=== PATIENT | female | born 1965 | race Caucasian/White ===

== ENCOUNTER 2018-10-23 06:56 | Emergency (ER) | payer OTHER ==
[2018-10-23] MEDS: DEXAMETHASONE 10 MG/ML 1 ML INJ IM (07:18)
[2018-10-23] MEDS: ACETAMINOPHEN 500 MG TAB PO (07:18)
[2018-10-23] MEDS: IPRATROPIUM (NEB) 0.5 MG/2.5 ML AMP NEB (07:35)
[2018-10-23] MEDS: ALBUTEROL 0.083% (NEB) 2.5 MG/3 ML AMP NEB (07:35)
== END 2018-10-23 08:53 | disposition home or self-care (01) ==
LOC: FTE 06:56
DX: J18.9 Pneumonia, unspecified organism (principal); J45.909 Unspecified asthma, uncomplicated
CPT/HCPCS: 71045; 94664; 96372; 99284-25

== ENCOUNTER 2018-10-28 10:08 | Emergency (ER) | payer OTHER | END 2018-10-28 12:32 | disposition home or self-care (01) | LOC: FTE 10:08 | DX: R05 Cough (principal) | CPT/HCPCS: 71046; 99283-25 ==

== ENCOUNTER 2019-01-19 18:25 | Emergency (ER) | payer OTHER ==
[2019-01-19] MEDS: METHYLPREDNISOLONE 125 MG INJ IM (20:03)
[2019-01-19 20:11] LABS: ADD UMIC YES; UR ASCORBIC ACID NEGATIVE (NEGATIVE); UR BACTERIA FEW /HPF (NONE SEEN); UR BILIRUBIN (Dip) NEGATIVE (NEGATIVE); UR BLOOD (Dip) 1+ mg/dL (NEGATIVE); UR CLARITY SLIGHTLY CLOUDY (CLEAR); UR COLOR YELLOW (YELLOW); UR GLUCOSE (Dip) NEGATIVE (NEGATIVE); UR KETONES (Dip) NEGATIVE (NEGATIVE); UR LEUKOCYTE ESTERASE (Dip) 3+ Leu/ul (NEGATIVE); UR NITRITE (Dip) NEGATIVE (NEGATIVE); UR RBC 3 /HPF (0-5); UR SQUAMOUS EPITHELIAL CELL FEW /HPF (FEW); UR TOTAL PROTEIN (Dip) NEGATIVE (NEGATIVE); UR UROBILINOGEN (Dip) NEGATIVE (NEGATIVE); UR WBC 16 /HPF (0-5)
== END 2019-01-19 21:14 | disposition home or self-care (01) ==
LOC: FTE 18:25
DX: J01.00 Acute maxillary sinusitis, unspecified (principal)
CPT/HCPCS: 81001; 93005; 96372; 99284-25